=== PATIENT | male | born 1950 | race Caucasian/White ===

== ENCOUNTER 2024-05-29 08:41 | Day surgery (SDC) | payer OTHER ==
[2024-05-29] MEDS ORDERED: Propofol 200 MG/20 ML SDV ONE ×2 (08:49→09:00)
[2024-05-29] MEDS ORDERED: fentaNYL 50 MCG/ML SDV ONE (08:49)
[2024-05-29] MEDS: Lactated Ringers 1,000 ML IV SCH (09:16)
== END 2024-05-29 11:35 | disposition home or self-care (01) ==
LOC: JP.SDS 08:41
PROVIDERS: ATTEND Surgery
DX: Z12.11 Encounter for screening for malignant neoplasm of colon (principal); D12.8 Benign neoplasm of rectum; K63.5 Polyp of colon; E11.9 Type 2 diabetes mellitus without complications; Z86.0100 Personal history of colon polyps, unspecified
CPT/HCPCS: 00811; 45380; J2704; J3010; J7120; 88305